=== PATIENT | male | born 1995 | race African-American/Black ===

== ENCOUNTER 2018-02-20 19:54 | Emergency (ER) | payer OTHER ==
[~2018-02-20] VITALS: Ht 180.3 cm; Wt 74.8 kg
[2018-02-20 19:54] VITALS: BP_SYST 134
--- NOTE | 2018-02-20 21:00 | NUR ---
Pt placed to bed 6, side rails up will give report to Joe UREÑA.
--- NOTE | 2018-02-20 21:00 | NUR ---
Pt came in AAOX4 with a complaint of lower back cramps with pain scale of 3/10. Pt was working out at the gym and he felt cramps afterwards. No fever no headache noted. No other complaint noted. Safety precaution observed. Will continue to monitor Pt.
--- NOTE | 2018-02-20 21:10 | NUR ---
ER MD Jones at bedside for medical evaluation.
[2018-02-20] MEDS ORDERED: ACETAMINOPHEN 500 MG TABLET PO ONE (21:15)
[2018-02-20 21:20] LABS: BILIRUBIN,URINE NEGATIVE (NEGATIVE); BLOOD, URINE NEGATIVE (NEGATIVE); CLARITY/URINE CLEAR (CLEAR); COLOR,URINE YELLOW (YELLOW); GLUCOSE,URINE NEGATIVE (NEGATIVE); KETONES,URINE NEGATIVE (NEGATIVE); LEUKOCYTE ESTERASE ,URINE NEGATIVE (NEGATIVE); NITRITE, URINE NEGATIVE (NEGATIVE); PH,URINE 6.5 (5.0-8.0); PROTEIN URINE NEGATIVE (NEGATIVE)
[2018-02-20 22:01] VITALS: BP_SYST 128
--- NOTE | 2018-02-20 22:01 | NUR ---
Patient given written and verbal discharge instructions and verbalizes understanding. ER MD Jones discussed with patient the results and treatment provided. Patient in stable condition. ID arm band removed.Patient educated on pain management and to follow up with PMD. Pain Scale 0/10. Opportunity for questions provided and answered. Medication side effect fact sheet provided.
== END 2018-02-20 22:01 | disposition home or self-care (01) ==
LOC: SED 19:54
DX: S39.012A Strain of muscle, fascia and tendon of lower back, initial encounter (principal); V43.53XA Car driver injured in collision with pick-up truck in traffic accident, initial encounter; Y93.89 Activity, other specified; Y92.411 Interstate highway as the place of occurrence of the external cause; Y99.8 Other external cause status
CPT/HCPCS: 72100-TC; 81003; 99284